=== PATIENT | female | born 1975 | race Caucasian/White ===

== ENCOUNTER → 2019-11-27 15:49 | Outpatient (CLI) | payer OTHER, SELFPAY ==
[2019-11-27 17:35] LABS: Hematocrit 41.9 % (37-47); Hemoglobin 13.6 g/dL (12.0-15.0); Mean Corp Hgb Conc 32.5 g/dL (32-36); Mean Corpuscular Hgb 29.2 pg (27.0-32.0); Mean Corpuscular Volume 89.9 fL (81-99); Platelet Count 349 K/mm3 (150-450); RBC Distribution Width CV 12.6 % (11.6-14.6); RBC Distribution Width SD 41.5 fl (35.1-43.9); Red Blood Count 4.66 M/mm3 (4.2-5.4); White Blood Count 8.2 K/mm3 (4.4-11.0)
== END ==
PROVIDERS: Referring Provider Physician Assistant; Visit Provider Physician Assistant
DX: Z01.818 Encounter for other preprocedural examination (principal)
CPT/HCPCS: 36415; 85027

== ENCOUNTER → 2020-07-08 14:11 | Outpatient (CLI) | payer OTHER, SELFPAY ==
--- NOTE | 2020-07-08 14:13 | CT_ITS ---
STUDY: CT FACIAL BONES WITHOUT CONTRAST REASON FOR EXAM: Female, 44 years old. BASEBALL TO LEFT EYE RADIATION DOSAGE (If Supplied By Facility): CTDIvol = ( 33.45 ) mGy, DLP = ( 620.79 ) mGycm TECHNIQUE: The patient was scanned in a multi detector CT scanner. Sagittal and coronal images were reconstructed. Individualized dose optimization techniques were used for this CT. COMPARISON: None. FINDINGS: Soft tissue swelling overlying the left maxillary region. This extends into the the region overlying the left zygomatic arch. Normal nasal bones and anterior nasal spine. There is evidence of a comminuted depressed fracture of the left zygomatic arch. There is evidence of a slightly depressed fracture through the lateral wall of the left maxillary sinus. Soft tissue prominence along the inferior liver orbital wall on the left side. A mildly depressed orbital floor fracture should be ruled out. A fluid level in the left maxillary sinus. CT/Sinus/Facial Bone IMPRESSION: Comminuted depressed fracture of the left zygomatic arch as well as a depressed fracture of the lateral wall of the left maxillary sinus and findings suggest a mildly depressed fracture of the left orbital floor. Overlying soft tissue swelling. Electronically Signed: Parish Castillo, at 14:44 EDT , Service support ,
== END ==
PROVIDERS: Referring Provider Otolaryngology; Visit Provider Otolaryngology
DX: S02.40FA Zygomatic fracture, left side, initial encounter for closed fracture (principal); S02.40DA Maxillary fracture, left side, initial encounter for closed fracture; S02.32XA Fracture of orbital floor, left side, initial encounter for closed fracture; W21.03XA Struck by baseball, initial encounter
CPT/HCPCS: 70486

== ENCOUNTER 2022-01-18 09:20 | Emergency (ER) | payer OTHER, SELFPAY ==
[2022-01-18 09:21] VITALS: BP 134/105; PULSE 78; RESP 18; TEMP 36.6; O2SAT 98; BMI 30.7
--- NOTE | 2022-01-18 09:35 | EDS_ITS ---
HPI HPI - Female History of Present Illness Chief Complaint: Vag Bleeding Narrative Narrative: Patient presents with her mother because of continued vaginal bleeding over the last month. She states that she had regular menses previously, every 3 weeks. Her symptoms began on December 14, over a month ago, where she has had continued bleeding. She was put on Provera by her primary care physician and referred to [facility] for continued bleeding. She states that she started the medication 2 days ago, but last evening had increased vaginal bleeding, more than her regular menses. She states at times she feels lightheaded and near syncopal. She denies any chest pain or shortness of breath. She presents because of the continued bleeding. Additionally, she states she had outpatient ultrasound which showed ovarian cyst on the left at 5 cm. No exacerbating or alleviating factors. [facility]SH [facility] Medical History no medical history Home Medications medroxyprogesterone 10 mg PO DAILY 01/18/22 [History Last Taken Unknown] Allergy/AdvReac Type Severity Reaction Status Date / Time No Known Allergies Allergy Verified 01/18/22 09:23 Social History Smoking Status: Never smoker ROS ROS ED ROS Narrative Constitutional: No fever, no chills. HEENT: No sore throat. No neck pain. No loss of vision. No rhinorrhea. Cardiovascular: No chest pain. No palpitations. No pedal edema. Respiratory: No cough, no shortness of breath. Abdominal: No abdominal pain. No nausea. No vomiting. Genitourinary: No dysuria. No hematuria. Continued vaginal bleeding for over a month, heavy since last evening. Musculoskeletal: No myalgias. No arthralgias. Neurologic: No headaches. No dizziness. Occasional intermittent lightheadedness. Skin: No rash. No change in color. Psychiatric: No depression. No anxiety. EXAM Physical Exam Narrative Exam Narrative: Afebrile. Vital signs noted. HEENT: Normocephalic. Atraumatic. PERRL, EOMI. Neck soft and supple. No point tenderness or step off. Cardiovascular: Regular rate and rhythm. No murmurs, rubs, or gallops appre ciated. Respiratory: No tachypnea. Lungs clear to auscultation bilaterally. Gastrointestinal: Abdomen soft, nontender, with normoactive bowel sounds. No rebound or guarding. Neurological: Awake. Alert. Nonfocal, nonlateralizing. Skin: No rash. Normal color. No pallor. No subconjunctival pallor. No central cyanosis. Musculoskeletal: No pedal edema. Full range of motion extremities. Const Vital Signs: 01/18/22 09:21 Temperature 98 F Temperature Source Temporal Pulse Rate 78 Respiratory Rate 18 Blood Pressure 134/105 H Blood Pressure Mean 114 Pulse Ox 98 Oxygen Delivery Method Room Air MDM MDM MDM Narrative Medical decision making narrative: Obtain a CBC along with serum . I will review her EMR. CBC shows normal hemoglobin of 13.1. Serum is negative. I am unable to view her ultrasound results. As she has had increased bleeding, I do feel a repeat ultrasound is indicated. Results of her ultrasound show that she has a left ovarian cyst at 6.2 cm. There is no regularity to the myometrium. Patient declines pelvic examination as she is to have 1 on Monday again. She states that her vaginal bleeding has subsided to a certain degree. I was able to discuss the patient with Dr. Powers who is on-call for Dr. Koenig who she is to see on Monday. She suggested that she double up on her progesterone and increase it to 20 mg for the next 3 days until she is seen. Patient has 7 tablets remaining in her pill bottle. I feel she can be discharged safely home with follow-up. Return instructions to the emergency de partment were reviewed. Disposition is discharged home in stable condition. Lab Data Attestation: I reviewed the patient's lab results. Labs: Laboratory Results - last 24 hr 01/18/22 01/18/22 10:10 10:10 WBC 6.1 RBC 4.49 Hgb 13.1 Hct 38.5 MCV 85.7 MCH 29.2 MCHC 34.0 RDW Std Deviation 39.9 RDW Coeff of Humberto 13.0 Plt Count 350 MPV 10.5 Immature Gran % (Auto) 0.700 Neut % (Auto) 65.5 Lymph % (Auto) 25.9 Polk % (Auto) 5.3 Eos % (Auto) 2.3 Baso % (Auto) 0.3 Absolute Neuts (auto) 4.0 Absolute Lymphs (auto) 1.57 Nucleated RBC % 0 Serum , Qual NEGATIVE Radiography Diagnostic Testing: Clinical Impression(s) from Imaging Studies Transvaginal US 01/18/22 09:39 IMPRESSION: 1. No myometrial or endometrial masses. 2. Bilateral ovarian cysts measuring up to 6.2 cm on the left side. SRU Consensus Conference guidelines (Monteiro, et. al. Radiology 2019;293:359-371) suggest that this simple cyst is almost certainly benign. No follow-up imaging is necessary. Electronically Signed: Jaden Busch MD (Brooks) at 11:26 EDT Reading Location ID and State: [facility] / [place] , Service support , Discharge Plan Triage Chief Complaint: Vag Bleeding ED Provider: Vincent Redmond Dx/Rx/DC Orders Clinical Impression: Abnormal vaginal bleeding Instructions: ED Dysfunctional Uterine Bleeding Prescriptions: No Action medroxyprogesterone 10 mg tablet 10 mg PO DAILY RF: 0 Primary Care Provider: Briseida Koenig Referrals: Briseida Koenig MD [Primary Care Provider] - 01/21/22 Activity Restrictions/Additional Instructions: Follow-up with Dr. Koenig as scheduled on Monday. Increase your progesterone to 20 mg by mouth every evening for the next 3 evenings. Disposition Disposition: Home, Self Care
--- NOTE | 2022-01-18 09:39 | US_ITS ---
STUDY: ULTRASOUND TRANSVAGINAL CLINICAL: Female, 46 years old. Heavy bleeding since last menstrual period TECHNIQUE: Transvaginal COMPARISON: None. FINDINGS: Normal uterine size measuring 8.3 x 4.9 x 4.0 cm in maximal craniocaudal dimension. There are no myometrial masses. Normal endometrial thickness measuring 8.0 mm. There are no endometrial masses, and there is no fluid in the endometrial cavity. Normal uterine cervix. Normal right ovary, measuring 3.2 x 4.1 x 2.6 cm. Dominant simple cyst of the right ovary measures 2.9 x 2.7 x 1.4 cm. Normal left ovary, measuring 7.8 x 5.7 x 5.3 cm. Dominant simple cyst of the left adnexa measures 6.2 x 5.2 x 4.5 cm There is no free fluid in the pelvis. US/Transvaginal Non- IMPRESSION: 1. No myometrial or endometrial masses. 2. Bilateral ovarian cysts measuring up to 6.2 cm on the left side. SRU Consensus Conference guidelines (Monteiro, et. al. Radiology 2019;293:359-371) suggest that this simple cyst is almost certainly benign. No follow-up imaging is necessary. Electronically Signed: Jaden Busch MD (Brooks) at 11:26 EDT ,
[2022-01-18 10:23] LABS: Absolute Lymphocyte Count 1.57 X10^3/uL (0.83-4.51); Basophil# 0.02 X10^3/uL; Basophil% 0.3 % (0-1); Eosinophil# 0.14 X10^3/uL; Eosinophils% 2.3 % (0-5); Hematocrit 38.5 % (37-47); Hemoglobin 13.1 g/dL (12.0-15.0); Lymphocyte # 1.57 X10^3/ul (0.83-4.51); Lymphocyte % 25.9 % (19-41); Mean Corpuscular Hgb 29.2 pg (27.0-32.0); Mean Corpuscular Volume 85.7 fL (81-99); Mean Platelet Vol. 10.5 fl (6.2-12.0); Monocyte# 0.32 X10^3/uL; Monocyte% 5.3 % (0-10); NRBC Flagged by Analyzer 0 % (0-5); Neutrophil # 3.97 X10^3/uL (2.7-7.7); Neutrophil % 65.5 % (47-70); Platelet Count 350 K/mm3 (150-450); RBC Distribution Width SD 39.9 fl (35.1-43.9); Red Blood Count 4.49 M/mm3 (4.2-5.4); White Blood Count 6.1 K/mm3 (4.4-11.0)
[2022-01-18 10:43] LABS: Internal QC Validated? YES +Cl - CLEAR BKGD; Pregnancy, Serum, hCG Quali. NEGATIVE Negative
[2022-01-18 11:58] VITALS: BP 139/95; PULSE 71; RESP 16; O2SAT 98
== END 2022-01-18 12:04 | disposition home or self-care (01) ==
PROVIDERS: Emergency Provider Emergency Medicine; PCP Obstetrics & Gynecology; Visit Provider Emergency Medicine
DX: N93.9 Abnormal uterine and vaginal bleeding, unspecified (principal); N83.202 Unspecified ovarian cyst, left side
CPT/HCPCS: 76830; 84703; 85025; 99283; A4216

== ENCOUNTER 2022-01-25 11:20 | Day surgery (SDC) | payer SELFPAY ==
--- NOTE | 2022-01-25 03:50 | HP.PCM_ITS ---
History and Physical Date of Admission: 01/25/22 Intake Vital Signs 01/21/22 15:48 Height 5 ft 2 in Weight: 184 lb BMI 33.6 Intake Visit Reasons: REFERRAL FOR CYST PER Chief Complaint: ovarian cyst [facility] referral [employer] Required: No Is patient in pain?: No Allergies No Known Allergies Allergy (Verified 01/18/22 09:23) Medications ibuprofen 800 mg tablet 800 mg PO Q8H 01/21/22 [History Confirmed 01/21/22] medroxyprogesterone 10 mg tablet 10 mg PO TID #60 tab 01/21/22 [Rx Confirmed 01/21/22] Is last menstrual period known: No Post menopausal: No Patient : No : No PFSH Surgical History (Updated 01/21/22 @ 15:50 by Tabitha Long) H/O knee surgery Social History (Updated 01/21/22 @ 15:51 by Tabitha Long) Smoking Status: Never smoker alcohol intake: never substance use type: does not use diet: low carbohydrate caffeine: Yes do you feel safe at home: Yes additional social history: 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 she is also having heavy bleeding. In the past she has regular menses every 3 weeks and then she has been having heavier bleeding that has lasted intermittently for the last 6 weeks. she was taking the provera 10 mg daily which helped but still had bleeding through it, and then became weak with it. she had an ultrasound that showed 8 mm lining no growths or abnormalities in the uterus but had a 6 cm left ovarian cyst. Her pain is intermittent, sharp shooting and cramping. she went to the ER for evaluation and showed the cyst and a normal Hg. Female Reproductive History Cycle Length: 21-35 Bleeding Duration: 5 Questions: metorrhagia: Yes (in the last 6 weeks), sexually active: No and PCB: No Menopausal Symptoms: No hot flashes, No night sweats, No weight change, No mood changes, No difficulty concentrating, No sleep problems and No change in libido Pregancy History 0 Elective abortions Hx Para Spontaneous abortions Hx # Term Pregnancies Ectopic pregnancies Hx # Pregnancies Multiple births # of living children ROS Const Constitutional: Reports fatigue; Denies night sweats, weight gain or weight loss ENT ENT: Reports system reviewed and no additional complaints, except as documented Cardio Card: Denies chest pain Resp Resp: Denies cough or dyspnea GI GI: Reports as per HPI and nausea; Denies constipation or vomiting : Reports as per HPI; Denies hot flashes, nipple discharge, vaginal discharge, vaginal dryness, vaginal odor or vaginal pruritus Musc Musc: Reports back pain; Denies arthralgias or muscle weakness Skin Skin/Breast: Denies alopecia, change in hair, dry skin, breast mass, breast pain, breast skin changes or nipple discharge Neuro Neuro: Reports system reviewed and no additional complaints, except as documented Psych Psych: Reports system reviewed and no additional complaints, except as documented; Denies change in libido or difficulty concentrating Endo Endo: Denies cold intolerance, excessive sweating, heat intolerance or polydipsia Chandana/Lymph Hematologic/Lymphatic: Denies easy bleeding, Denies easy bruising and Denies lymphadenopathy Exam Const General: cooperative, healthy appearing, comfortable, no acute distress and well developed Orientation: alert [facility] Head: normal to inspection and normocephalic Ears: hearing grossly normal bilaterally and external ears normal Nose: external nose normal and nares normal Face and sinus: normal facial exam Neck Neck: normal visual inspection and no lymphadenopathy Thyroid: thyroid normal Chest Chest palpation & inspection: normal inspection of the chest Resp Effort & Inspection: normal respiratory effort Auscultation: clear to auscultation bilaterally Cardio Rate: regular rate Rhythm: regular rhythm Heart Sounds: S1 normal and S2 normal GI Inspection: normal to inspection and non-distended Palpation: soft and no hepatosplenomegaly Musc Other: gross motor intact no deficits, full bilateral strength Skin General: no rashes or lesions noted Neuro General: patient alert, patient awake, moves all extremities and no focal motor deficits Motor: muscle tone normal throughout Extrem General: normal to inspection and no pedal edema Psych Appearance: grossly normal Mental Status: mental status grossly normal Affect: normal affect Speech and Movement: speech and movement normal Coding Level of Care Code Off vis,new,level 4 Diagnoses Left ovarian cyst N83.202 Abnormal vaginal bleeding N93.9 Assessment and Plan Assessment and Plan (1) Left ovarian cyst: Status: Acute Comment: laparoscopic ovarian cystectomy. (2) Abnormal vaginal bleeding: Status: Acute Comment: provera now, plan d and c hysteroscopy ablation Plan - Dr. Briseida Koenig MD: After discussing the patient's diagnosis and treatment plan options, patient wishes to proceed with surgical management. I have discussed with the patient the risks, benefits, and alternatives of the procedure which include but are not limited to risks of anesthesia, bleeding, infection, possible damage to bowel, bladder, or surrounding vasculature which could lead to additional surgery to evaluate any complications. Patient agrees to procedure and wishes to proceed. ACOG/uptodate references given for additional information regarding procedure. Plan Details Other Medications: Changed: From: medroxyprogesterone 10 mg PO DAILY To: medroxyprogesterone 10 mg PO TID 60 tabs 2RF UPDATE- I have seen the patient and performed any clinically relevant updates to the history and physical exam. Briseida Koenig MD
[2022-01-25 12:24] VITALS: BP 147/94; PULSE 73; RESP 16; TEMP 37.1; O2SAT 98; BMI 31.6
[2022-01-25] MEDS: Lactated Ringers 1,000 ML 125 ML IV (12:28)
[2022-01-25 12:37] LABS: Internal QC Validated? YES +Cl - CLEAR BKGD; Pregnancy, Urine Negative Negative
[2022-01-25] MEDS: Bupivacaine 0.25% 30 ML Vial (13:30)
--- NOTE | 2022-01-25 13:30 | OV_PTH ---
PATIENT: SYDNI LUA LOC: [facility] [place] U#:[id number] AGE/SX: 46/F ROOM: RE01/25/[address]: Dr. Briseida Koenig MD : 1975 BED: DIS: 01/25/2022 SPEC #: [id number] RECD: 01/25/22 15:23 STATUS: JOSH ROBBHaley #: [id number] ISABELLE: 01/25/22 13:[address]: Briseida Koenig DEPT: SURGICAL PATHOLOGY RECD BY: Mike Beverly Tissues: A - Left ovary B - Endometrium, NOS Procedures: Surgery Specimen Level IV HEADER OPERATION: Laparoscopic ovarian cystectomy PRE-OP DIAGNOSIS: Left ovarian cyst TISSUE SUBMITTED: A ? Left ovarian cyst, B ? Endometrial curettings MICROSCOPIC DIAGNOSIS A. Left ovarian cyst, cystectomy: Ovarian tissue with physiologic follicular cyst. B. Endometrial curettings: Weakly proliferative endometrium with glandular and stromal breakdown. A few fragments of endometrial tissue with pseudodecidualized stroma suggestive of exogenous hormone effect. Fragments of benign ecto- and endocervical mucosa. IVETT:donna 01/27/2022 MICROSCOPIC DESCRIPTION Slides are reviewed. GROSS DESCRIPTION A - Received in fixative is one container labeled with the patient's name and designated left ovarian cyst. The specimen consists of multiple pieces of bee soft tissue consistent with ovarian tissue that in aggregate measure 3 x 2.5 x 1 cm. The largest piece measures 2.5 cm in greatest dimension. The larger two pieces are serially sectioned. The entire specimen is submitted in three cassettes. B - Received in fixative is one container labeled with the patient's name and designated endometrial curettings. The specimen consists of multiple fragments of hemorrhagic soft tissue that in aggregate measure 1.5 x 1.5 x 0.1 cm. The specimen is totally submitted in one cassette. / IVETT:donna 01/26/2022 TC:5 CPT: 39022 x2
[2022-01-25 15:03] VITALS: BP 114/67; BP 147/94; PULSE 79; RESP 16; TEMP 37.3; O2SAT 96
--- NOTE | 2022-01-25 15:03 | PCM.OPRPT ---
Problems Associated Problem List Diagnoses (1) S/P endometrial ablation: (2) H/O laparoscopy: (3) Left ovarian cyst: Report of Operation Pre-Operative Diagnosis: see problem list Post-Operative Diagnosis: same Surgery/Procedure Performed:: laparoscopic left ovarian cystectomy era ablation d and c hysteroscopy Description of Surgical Findings:: nl uterus tubes left ovary enlarged nl uterine lining Type of Anesthesia: General and Local Specimen's removed: left ovarian cyst and EMC Drains: none Estimated Blood Loss (mL): 50 Fluids Replaced: crystalloid Description of Procedure: Patient was taken in the operating room and was placed under general anesthesia was prepped and draped in normal sterile fashion in the dorsal lithotomy position. Bladder was drained of clear urine and SCDs were on preoperatively. Uterus was sounded and a uterine manipulator was placed after dilating. Attention was then paid to the abdominal portion of the procedure and the umbilicus was elevated with towel clamps and injected with Marcaine and after a 5 mm incision was made and the Veress needle was entered into the abdomen confirmed to be intra-abdominal with a low opening pressure of less than 5 mmHg. Abdomen was insufflated with CO2 gas and a 5 mm optical trocar was placed under direct visualization. A 5 mm port was placed in the right left lower quadrant port under direct visualization. Uterus was well visualized and the right tube and ovary were noted to be within normal limits and the left tube was within normal limits but the left ovary was significantly enlarged with a simple appearing cyst. The cyst was ruptured and the cyst wall excised without complication. Monopolar energy was used to obtain hemostasis and then Lesley placed over the area. Excellent hemostasis was noted. Liver and upper abdomen were visualized notably within normal limits and no other gross abnormalities were seen in the abdomen. All instruments removed from the abdomen after gas was desufflated. Port sites were closed with 3-0 Monocryl Steri's and op sites were applied. Attention was then paid to the ablation portion of the procedure. Manipulator was removed and the cervix progressively dilated to allow passage of a 5 mm hysteroscope the lining was well visualized and noted to be within normal limits. Curettage was performed. Cavity length was 4 cm in the Era ablation device was used to perform a 2-minute complete ablation without complication after passing the cavity integrity test. all instruments removed from the vagina and patient was awoken and taken recovery in stable condition. Grafts/Implants Used: none Complications none Admit VTE Documentation VTE Present on Admission: No VTE Mechan Device Prophylaxis: SCD's Multi Select Codes Urinary/Genital Urinary/Genital CPT Codes: 04209 Era/Novasure and 15699 Laproscopic BS/O
--- NOTE | 2022-01-25 15:08 | DCINST_ITS ---
Discharge Instructions Diet Discharge Diet: No restrictions Activity Discharge Activity: Return to Normal Activity, May Not Drive (for 2 weeks or while taking narcotic pain meds.), May Shower and May Take a Tub Bath (in 7 days) May resume sexual activity in: 1 week Weight Bearing Status: Full weight bearing Dressing / Incision Call your doctor if your incision/area has: Continuous Slow Oozing, Sudden Increased Bleeding, Increased Pain/ Swelling, Increased Redness and Foul Smelling Discharge Call your doctor if you observe: Fever of 101 or Higher, Using more than 1 pad per hour, Shortness of breath, Chest pain and Uncontrolled pain Suture Line Care: Avoid Pulling/Pushing and Avoid Pinching/Bending Remove Dressing in: 1 week (if present) Cleanse incision/area with: Soap & Water and Keep Dressing Clean & Dry Follow Up Care When: Call to make an appointment with your doctor for a fu/incision check in 1- 2 weeks. Test Results: Test results from this visit will be discussed in further detail at your follow-up appointment, if applicable. Discharge Plan Admission Attending Provider: Briseida Koenig Primary Care Provider: Briseida Koenig Discharge Orders/Prescriptions Prescriptions: New oxycodone-acetaminophen [Percocet] 5-325 mg tablet 1 tab PO Q6H PRN (Reason: pain) 7 Days Qty: 20 RF: 0 naproxen [naproxen] 500 MG tablet 500 mg PO BID PRN PRN (Reason: Pain) Qty: 30 RF: 1 Continued acetaminophen [Tylenol] 325 mg Tablet 650 mg PO Q6H PRN (Reason: Pain) RF: 0 ferrous sulfate 325 mg (65 mg iron) Tablet 325 mg PO DAILY RF: 0 Discontinued ibuprofen 800 mg tablet 800 mg PO Q8H RF: 0 medroxyprogesterone 10 mg tablet 10 mg PO TID Qty: 60 RF: 2 Referrals / Follow Up: Briseida Koenig MD [Primary Care Provider] - Disposition Disposition (needs filled in before D/C Order can be placed): Home, Self Care
[2022-01-25 15:15] VITALS: BP 112/67; BP 147/94; PULSE 66; RESP 18; O2SAT 96
[2022-01-25 15:30] VITALS: BP 109/64; BP 147/94; PULSE 69; RESP 16; O2SAT 96
[2022-01-25 15:46] VITALS: BP 115/72; BP 147/94; PULSE 77; RESP 16; TEMP 36.3; O2SAT 98
[2022-01-25] MEDS: HYDROcodone Bitartrate/Apap 5/325 Tablet PO (16:20)
[2022-01-25 16:50] VITALS: BP 121/73; BP 147/94; PULSE 66; RESP 18; TEMP 36.2; O2SAT 98
== END 2022-01-25 23:59 | disposition home or self-care (01) ==
LOC: SDC 11:28 → AC 11:31
PROVIDERS: PCP Obstetrics & Gynecology; Referring Provider Obstetrics & Gynecology; Visit Provider Obstetrics & Gynecology
PROC: (CPT 58720; principal; 2022-01-25 13:15)
PROC: 0U5B8ZZ Destruction of Endometrium, Via Natural or Artificial Opening Endoscopic (ICD-10-PCS; CPT 58558; 2022-01-25 13:15)
DX: N83.02 Follicular cyst of left ovary (principal); N93.9 Abnormal uterine and vaginal bleeding, unspecified; Z20.822 Contact with and (suspected) exposure to COVID-19
CPT/HCPCS: 58662; 58563; 00840; 81025; 86850; 86900; 86901; 87811; 88305; J7120; J2405

== ENCOUNTER → 2022-11-24 | Outpatient (CLI) | payer OTHER, SELFPAY | END | disposition home or self-care (01) | PROVIDERS: PCP Obstetrics & Gynecology; Visit Provider Obstetrics & Gynecology | DX: N89.8 Other specified noninflammatory disorders of vagina (principal) | CPT/HCPCS: 87070; 87205 ==

== ENCOUNTER → 2023-01-26 | Outpatient (CLI) | payer OTHER, SELFPAY ==
[2023-02-01 16:08] LABS: HPV APTIMA, High Risk Negative (Negative)
== END | disposition home or self-care (01) ==
LOC: LABSPEC 11:23
PROVIDERS: PCP Obstetrics & Gynecology; Referring Provider Nurse Practitioner Women's Health; Visit Provider Nurse Practitioner Women's Health
DX: Z12.4 Encounter for screening for malignant neoplasm of cervix (principal)
CPT/HCPCS: 87624; 88175; G0145

== ENCOUNTER → 2023-02-10 | Outpatient (CLI) | payer SELFPAY, OTHER ==
--- NOTE | 2023-02-10 07:42 | US_ITS ---
STUDY: ULTRASOUND OF THE FEMALE PELVIS - COMPLETE REASON FOR EXAM: Female, 47 years old. Follow-up pelvic pain. LMP: Unknown. TECHNIQUE: Transvaginal TECHNICAL QUALITY: Examination limited by bowel gas. COMPARISON: January 18, 2022 FINDINGS: The uterus is anteverted and is in a midline position. The uterus measures 7.1 x 4.9 x 3.3 cm. There is a Nabothian cyst of the cervix. The endometrium measures 13 mm in thickness, and is hyperechoic. There appears to be a 1.3 x 1.5 x 1.1 cm hypoechoic focus within the endometrial canal which was not previously seen. There is no demonstrated myometrial mass. I.U.D. - The patient does not have an I.U.D. The right ovary is visualized. The right ovary measures 2.7 x 1.6 x 3.3 cm. There are multiple follicles of the right ovary without a dominant cyst. There is no visualized right adnexal mass or complex lesion. There is normal arterial and normal venous vascularity. The left ovary is not visualized.. There is no visualized left adnexal mass or complex lesion. There is no fluid in the cul-de-sac. The pre void volume of the bladder was ml. The post void volume of the bladder was ml. Polycystic ovary disease: No. US/Transvaginal Non- IMPRESSION: 1. Hypoechoic focus within the enlarged endometrial canal. This was noted to noted on the study of approximately one year earlier. Etiology is uncertain. [facility] N[facility] consult is recommended. 2. Normal right ovary. Left ovary is obscured by bowel gas. Electronically Signed: Vel Orellana DO at 19:19 EDT ,
== END | disposition home or self-care (01) ==
PROVIDERS: Referring Provider Nurse Practitioner Women's Health; Visit Provider Nurse Practitioner Women's Health
DX: R10.2 Pelvic and perineal pain (principal)
CPT/HCPCS: 76830

== ENCOUNTER → 2023-04-13 | Outpatient (CLI) | payer SELFPAY, OTHER ==
--- NOTE | 2023-04-13 10:39 | US_ITS ---
STUDY: ULTRASOUND OF THE FEMALE PELVIS - COMPLETE REASON FOR EXAM: Female, 47 years old. pelvic pain and bloating -- post endometiral ablaition TECHNIQUE: Transabdominal COMPARISON: 01.18.22. FINDINGS: The uterus is anteverted and is in a midline position. The uterus measures 7.7 x 4.7 cm. There is a Nabothian cyst of the cervix. The endometrium measures 14 mm in thickness, and is hyperechoic. There is no demonstrated endometrial mass. There is no demonstrated myometrial mass. I.U.D. - The patient does not have an I.U.D. The right ovary is visualized. The right ovary measures 3.8 x 3.6 cm. Right ovary cyst is 35 mm. There is no visualized right adnexal mass or complex lesion. There is normal arterial and normal venous vascularity. There is nonvisualization of the left ovary due to overlying bowel gas There is no fluid in the cul-de-sac. Urinary bladder volume is (in cc) 1077. IMPRESSION: There is a Nabothian cyst of the cervix. The urinary bladder is distended. This can suggest urinary retention. Diffuse thickening of the endometrium may be related to the patient''s recent procedure. Right ovarian cyst. SRU Consensus Conference guidelines (Monteiro, et. al. Radiology 2019;293:359-371) suggest that this simple cyst is non-neoplastic. No further follow-up is necessary. Electronically Signed: Jean Menon MD at 19:39 EDT , STUDY: ULTRASOUND OF THE FEMALE PELVIS - COMPLETE REASON FOR EXAM: Female, 47 years old. pelvic pain and bloating -- post endometiral ablaition TECHNIQUE: Endovaginal. Transvaginal US was obtained to better visualized the ovaries. COMPARISON: 01.18.22. FINDINGS: The uterus is anteverted and is in a midline position. The uterus measures 7.7 x 4.7 cm. There is a Nabothian cyst of the cervix. The endometrium measures 14 mm in thickness, and is hyperechoic. There is no demonstrated endometrial mass. There is no demonstrated myometrial mass. I.U.D. - The patient does not have an I.U.D. The right ovary is visualized. The right ovary measures 3.8 x 3.6 cm. Right ovary cyst is 35 mm. There is no visualized right adnexal mass or complex lesion. There is normal arterial and normal venous vascularity. There is nonvisualization of the left ovary due to overlying bowel gas There is no fluid in the cul-de-sac. Urinary bladder volume is (in cc) 1077. US/Transvaginal Non-
--- NOTE | 2023-04-13 10:39 | US_ITS ---
STUDY: ULTRASOUND OF THE FEMALE PELVIS - COMPLETE REASON FOR EXAM: Female, 47 years old. pelvic pain and bloating -- post endometiral ablaition TECHNIQUE: Transabdominal COMPARISON: 01.18.22. FINDINGS: The uterus is anteverted and is in a midline position. The uterus measures 7.7 x 4.7 cm. There is a Nabothian cyst of the cervix. The endometrium measures 14 mm in thickness, and is hyperechoic. There is no demonstrated endometrial mass. There is no demonstrated myometrial mass. I.U.D. - The patient does not have an I.U.D. The right ovary is visualized. The right ovary measures 3.8 x 3.6 cm. Right ovary cyst is 35 mm. There is no visualized right adnexal mass or complex lesion. There is normal arterial and normal venous vascularity. There is nonvisualization of the left ovary due to overlying bowel gas There is no fluid in the cul-de-sac. Urinary bladder volume is (in cc) 1077. IMPRESSION: There is a Nabothian cyst of the cervix. The urinary bladder is distended. This can suggest urinary retention. Diffuse thickening of the endometrium may be related to the patient''s recent procedure. Right ovarian cyst. SRU Consensus Conference guidelines (Monteiro, et. al. Radiology 2019;293:359-371) suggest that this simple cyst is non-neoplastic. No further follow-up is necessary. Electronically Signed: Jean Menon MD at 19:39 EDT , STUDY: ULTRASOUND OF THE FEMALE PELVIS - COMPLETE REASON FOR EXAM: Female, 47 years old. pelvic pain and bloating -- post endometiral ablaition TECHNIQUE: Endovaginal. Transvaginal US was obtained to better visualized the ovaries. COMPARISON: 01.18.22. FINDINGS: The uterus is anteverted and is in a midline position. The uterus measures 7.7 x 4.7 cm. There is a Nabothian cyst of the cervix. The endometrium measures 14 mm in thickness, and is hyperechoic. There is no demonstrated endometrial mass. There is no demonstrated myometrial mass. I.U.D. - The patient does not have an I.U.D. The right ovary is visualized. The right ovary measures 3.8 x 3.6 cm. Right ovary cyst is 35 mm. There is no visualized right adnexal mass or complex lesion. There is normal arterial and normal venous vascularity. There is nonvisualization of the left ovary due to overlying bowel gas There is no fluid in the cul-de-sac. Urinary bladder volume is (in cc) 1077. US/Pelvic (Non )
== END | disposition home or self-care (01) ==
PROVIDERS: Referring Provider Obstetrics & Gynecology; Visit Provider Obstetrics & Gynecology
DX: R10.2 Pelvic and perineal pain (principal); R14.0 Abdominal distension (gaseous)
CPT/HCPCS: 76830; 76856

== ENCOUNTER → 2024-02-28 | Outpatient (CLI) | payer SELFPAY ==
--- NOTE | 2024-02-28 07:22 | CT_ITS ---
CT RIGHT LOWER EXTREMITY WITH 3-D IMAGING CLINICAL INDICATION: OSTEOARTHRITIS OF KNEE. [facility] protocol. TECHNIQUE: Axial CT images of the RIGHT lower extremity was performed without IV contrast material. Coronal and sagittal reformats were provided. RADIATION DOSAGE (If Supplied By Facility): CTDIvol = ( 18.91 ) mGy, DLP = ( 1179.65 ) mGycm COMPARISON: No relevant prior comparison study available FINDINGS: Bones: Imaging of the right hip joint was obtained. No significant abnormality is seen. Imaging of the right knee joint was obtained. There is a moderate degree of joint space narrowing involving the medial compartment of the knee joint with degenerative spur formation of the medial femoral condyle and the medial tibial plateau. Imaging of the ankle joint was obtained. No abnormality is seen. Soft Tissues: Minimal knee joint effusion. The superficial soft tissues are unremarkable without evidence of edema, hematoma, or foreign body. CT/Extremity Lower without Contra IMPRESSION: Moderate degree of the osteoarthritis and joint space narrowing involving the medial compartment of knee joint with degenerative spur formation. Electronically Signed: Parish Castillo MD at 14:17 EDT ,
--- NOTE | 2024-02-28 08:15 | EKG12_ITS ---
Test Reason : PREOP Blood Pressure : / mmHG Vent. Rate : 078 BPM Atrial Rate : 078 BPM P-R Int : 142 ms QRS Dur : 080 ms QT Int : 402 ms P-R-T Axes : 044 014 017 degrees QTc Int : 458 ms Normal sinus rhythm Normal ECG Confirmed by KARI BANKS, KELLI ([id number]), digital editor DIANE MARTINO ([id number]) on 03/04/2024 1:41:41 PM Referred By: Eduardo Aceves Confirmed By:GIOVANNI PIERCE MD
--- NOTE | 2024-02-28 08:27 | RAD_ITS ---
STUDY: X-RAY CHEST REASON FOR EXAM: Female, 48 years old. Preoperative evaluation. TECHNIQUE: Frontal and lateral views of the chest. COMPARISON: None. FINDINGS: The lungs are clear and expanded. There is no demonstrated pleural abnormality. Normal size heart. Normal mediastinum and jerilyn. Normal visualized pulmonary arteries. Normal visualized aortic arch and descending thoracic aorta. Mild thoracic spondylosis. Normal visualized ribs, clavicles, and shoulders. No abnormality of the visualized soft tissue structures of the upper abdomen. RAD/Chest PA and Lateral IMPRESSION: No active or acute cardiopulmonary disease. Electronically Signed: Skip Jenkins MD at 13:08 EDT ,
== END | disposition home or self-care (01) ==
PROVIDERS: Referring Provider Orthopaedic Surgery; Visit Provider Orthopaedic Surgery
DX: Z01.818 Encounter for other preprocedural examination (principal); M17.11 Unilateral primary osteoarthritis, right knee; M17.2 Bilateral post-traumatic osteoarthritis of knee
CPT/HCPCS: 71046; 73700; 93005

== ENCOUNTER → 2024-03-22 | Outpatient (CLI) | payer SELFPAY ==
[2024-03-22 11:54] LABS: Absolute Lymphocyte Count 1.96 X10^3/uL (0.83-4.51); Absolute Neutrophil Count 4.6 X10^3/uL (2.0-7.7); Basophil# 0.03 X10^3/uL; Basophil% 0.4 % (0-1); Eosinophil# 0.13 X10^3/uL; Eosinophils% 1.8 % (0-5); Hematocrit 39.7 % (37-47); Hemoglobin 13.1 g/dL (12.0-15.0); Lymphocyte # 1.96 X10^3/ul (0.83-4.51); Lymphocyte % 27.1 % (19-41); Mean Corpuscular Hgb 29.4 pg (27.0-32.0); Mean Corpuscular Volume 89.2 fL (81-99); Mean Platelet Vol. 10.1 fl (6.2-12.0); Monocyte# 0.48 X10^3/uL; Monocyte% 6.6 % (0-10); NRBC Flagged by Analyzer 0 % (0-5); Neutrophil # 4.59 X10^3/uL (2.7-7.7); Neutrophil % 63.5 % (47-70); Platelet Count 297 K/mm3 (150-450); RBC Distribution Width CV 12.2 % (11.6-14.6); RBC Distribution Width SD 39.7 fl (35.1-43.9); Red Blood Count 4.45 M/mm3 (4.2-5.4); White Blood Count 7.2 K/mm3 (4.4-11.0)
[2024-03-22 12:22] LABS: Anion Gap 3 (5-15); BUN 10 mg/dL (7-18); BUN/Creat Ratio 18.4 RATIO (10-20); Chloride 109 mmol/L (98-107); Creatinine, Serum 0.54 mg/dL (0.55-1.02); EST Glomerular Filtration Rate 127 mL/min (>60); Est Glom Filt Rate - Afr Amer 154 mL/min (>60); Glucose 109 mg/dL (74-106); Potassium 3.7 mmol/L (3.5-5.1); Sodium Level 139 mmol/L (136-145)
== END | disposition home or self-care (01) ==
LOC: LAB 11:18
PROVIDERS: Referring Provider Orthopaedic Surgery; Visit Provider Orthopaedic Surgery
DX: Z01.818 Encounter for other preprocedural examination (principal); M17.11 Unilateral primary osteoarthritis, right knee
CPT/HCPCS: 36415; 80048; 85025

== ENCOUNTER → 2024-04-04 | Outpatient (CLI) | payer OTHER, SELFPAY ==
[2024-04-04 08:38] LABS: Hemoglobin A1c 4.9 % (3.8-5.6)
== END | disposition home or self-care (01) ==
PROVIDERS: Referring Provider Orthopaedic Surgery; Visit Provider Orthopaedic Surgery
DX: R73.09 Other abnormal glucose (principal)
CPT/HCPCS: 36415; 83036

== ENCOUNTER → 2024-04-15 | Outpatient (CLI) | payer OTHER, SELFPAY ==
--- NOTE | 2024-04-15 09:15 | KNEE_PTH ---
PATIENT: SYDNI ACEVES LOC: [facility] U#:[id number] AGE/SX: 48/F ROOM: RE04/15/[address]: Dr. Eduardo Aceves MD : 1975 BED: DIS: 04/15/2024 SPEC #: [id number] RECD: 04/16/24 10:10 STATUS: JOSH CARINA #: [id number] ISABELLE: 04/15/24 09:[address]: Eduardo Aceves DEPT: SURGICAL PATHOLOGY RECD BY: Simin Altman ENTERED: 04/16/24 10:10 SP TYPE: TOTAL KNEE OTHR DR: ELLIS Moses Tissues: Knee, NOS Procedures: Decalcification bone/plaque Surgery Specimen Level IV HEADER OPERATION: Right total knee arthroplasty PRE-OP DIAGNOSIS: Right knee post traumatic arthritis TISSUE SUBMITTED: Right knee MICROSCOPIC DIAGNOSIS Bone and soft tissue, right knee, total knee replacement/resection: Pieces of bone with degenerative osteoarthritic changes. Fibroadipose tissue, fibroconnective tissue and reactive synovial tissue. SJ: 04/19/2024 MICROSCOPIC DESCRIPTION Slides are reviewed. GROSS DESCRIPTION Received is one container designated bone and soft tissue right knee. The specimen consists of multiple fragments of bee-yellow bone measuring in aggregate 10.5 x 10.0 x 3.0 cm. Also in the specimen container are multiple fragments of yellow-white soft tissue measuring in aggregate 7.5 x 6.0 x 2.0 cm. A number of bony fragments contain articular surfaces consistent with tibial plateau and femoral condyle and displaying prominent osteophyte formation, eburnation and bone erosion. [facility] sections are submitted in two cassettes as follows: 1 - soft tissue, 2 - bone after decalcification. / IVETT/ 04/16/24 TC:5 [facility]: [id number]
== END | disposition home or self-care (01) ==
PROVIDERS: Referring Provider Orthopaedic Surgery; Visit Provider Orthopaedic Surgery
DX: M13.861 Other specified arthritis, right knee (principal)
CPT/HCPCS: 88305; 88311

== ENCOUNTER → 2024-06-19 | Outpatient (CLI) | payer SELFPAY ==
--- NOTE | 2024-06-19 10:09 | VDLE_ITS ---
Reason For Study: PAIN RIGHT LEFT GSV is normal. CFV is compressible, spontaneous, phasic, CFV is compressible, spontaneous, phasic, competent, and demonstrates normal competent and demonstrates normal augmentation. augmentation. FV is compressible, spontaneous, phasic, competent and demonstrates normal augmentation. POP V is compressible, spontaneous, phasic, competent and demonstrates normal augmentation. T/P Trunk is compressible. PTV is compressible. RT PerV is compressible. Procedure This is a venous duplex using B-mode, color flow and spectral Doppler. Exam performed in department. A preliminary report was called and/or faxed to [facility]. VL/Venous Duplex US, Unilateral Interpretation Summary Deep veins of the right lower extremity are patent and compressible segmentally . There is no evidence of right lower extremity deep vein thrombosis. The right great sapheno us vein appears patent and compressible segmentally. Ordering Physician: Tosha Ann Referring Physician: Tosha Ann Performed By: Malka Castro RVT
== END | disposition home or self-care (01) ==
LOC: CVS 10:03
PROVIDERS: Referring Provider Physician Assistant; Visit Provider Physician Assistant
DX: M79.661 Pain in right lower leg (principal); Z96.651 Presence of right artificial knee joint
CPT/HCPCS: 93971